=== PATIENT | male | born 1965 | race Caucasian/White ===

== ENCOUNTER 2017-11-14 14:28 | Day surgery (SDC) | payer BC ==
[2017-11-14] MEDS ORDERED: FENTAnyl 50 MCG/ML VIAL (16:36)
[2017-11-14] MEDS ORDERED: MIDAZOLAM 1 MG/ML 2 ML INJ ×3 (16:36)
== END 2017-11-14 17:16 | disposition home or self-care (01) ==
LOC: GIL 14:28
DX: Z12.11 Encounter for screening for malignant neoplasm of colon (principal); K63.89 Other specified diseases of intestine; E11.9 Type 2 diabetes mellitus without complications; I10 Essential (primary) hypertension
CPT/HCPCS: 45378; 82962

== ENCOUNTER → 2017-12-23 | Outpatient (CLI) | payer BC | END | disposition home or self-care (01) | LOC: RAD 10:57 | DX: Z12.11 Encounter for screening for malignant neoplasm of colon (principal) | CPT/HCPCS: 74018 ==

== ENCOUNTER → 2018-01-02 | Outpatient (CLI) | payer BC ==
[~2018-01-02] MED LIST: IOHEXOL 300MG/ML 150 ML BTL
== END | disposition home or self-care (01) ==
LOC: RAD 10:43
DX: Z12.11 Encounter for screening for malignant neoplasm of colon (principal)
CPT/HCPCS: 74280